=== PATIENT | male | born 1950 | race Caucasian/White ===

== ENCOUNTER 2017-09-21 14:12 | Observation (INO) ==
--- NOTE | 2017-09-21 14:26 | Emergency Department Note ---
Disposition Clinical Impression: Acute electrocardiogram changes, Dizziness, Chest pain of uncertain etiology Disposition: Admitted As Inpatient Condition: Undetermined General Adult HPI - General Chief complaint: ED Dizziness Stated complaint: dizziness, nausea Time Seen by Provider: 09/21/17 14:20 Source: patient Nursing Notes Reviewed: Yes Vital Signs Reviewed: Yes - History of Present Illness HPI Narrative: Mr. Cole, 66-year-old male, presents from home for evaluation of dizziness. Onset approximately 2 months ago and intermittent. Occurs when he stands from a seated position. Described as a flush sensation with tunneling vision. Feels that his head has pressure; denies headache. Resolves once he starts moving. He has not fallen; no head trauma. Habits: Current every day smoker. Started smoking when he was 4yrs of age. Max of 4 packs per day. Currently down to 1 cigarette per day. Unable to calculate pack year history. ROS: Positive: As above Negative: Fever, chills, nausea, vomiting, changes in vision, chest pains, palpitations, unusual back pains, numbness, tingling, weakness Pain Scale: 0 - Related Data Home Medications Medication Instructions Recorded Confirmed Acetaminophen [Tylenol] 1,000 mg PO Q6HR PRN 07/11/16 09/21/17 Aspirin 81 mg PO DAILY 09/21/17 09/21/17 Allergies Allergy/AdvReac Type Severity Reaction Status Date / Time No Known Allergies Allergy Verified 08/21/17 18:35 All systems ED: reviewed and negative except as stated. Review of Systems: As Per HPI Past Medical History - Past Medical History Medical history: Reports: myocardial infarction Surgical history: Reports: other Psychiatric history: Reports: no psych history - Social History Smoking Status: Former smoker Smokeless Tobacco Status: No Alcohol use: Reports: occasionally Drug use: Reports: marijuana Physical Exam Vital Signs Reviewed General: Patient is alert, oriented, and in no acute distress. HEENT: No facial asymmetry. Head is normocephalic and atraumatic. PERRLA, EOMI. oral mucosa moist. Trachea midline. Unable to visualize TMs as are both 100% occluded by black cerumen. Cardiovascular: Heart regular rate and rhythm without clicks, rubs, gallops, or murmurs. No JVD. PMI nondisplaced. Bilateral radial posterior tibial pulses 2 /4. No pedal edema. Substantial clubbing on all digits. Respiratory: Symmetric chest rise with good respiratory effort. Bilateral breath sounds are clear without wheezing, crackles, or rhonchi. Abdomen: Bowel sounds present normoactive x-4 quadrants. Abdomen is soft, nondistended, and nontender. No organomegaly noted. Musculoskeletal: Spontaneously moving all extremities. Neuro: Alert and oriented x4. Sensation light touch intact.. No gait ataxia. No limb drift. Psych: Patient's affect is appropriate for situation. - General General appearance: alert, in no apparent distress Course Course Narrative: There is a presents from home which he complained of dizziness. Appears to be worse when he stands. He has not had a true syncopal event has not fallen because of this. Will perform syncope workup. Patient's EKG shows concerning T-wave inversions in leads V4, V5, V6. On review evaluation and requestioning, patient noted he had chest pain transiently this morning. Described as chest heaviness. Occurred at rest while lying down. Duration was 20-30 seconds. When he sat up, he had nausea and his chest pressure spontaneously resolved. No dyspnea or diaphoresis. Family history is concerning for cardiac history in that multiple siblings have had MO. Chest x-ray and CT had showed no acute processes. Lab work is grossly unremarkable; specifically initial troponin is below upper limit of normal. No renal dysfunction. Spent an extended amount of time attempting to clear the substantial cerumen impaction from the patient's ears. There is impaction bilaterally from the middle of the external auditory canal back to the tympanic membrane. I was able to clear to the tympanic membrane however there was a codeine of cerumen on the TM itself which I was unable to adequately clear despite using repeated flushes of warm water. Patient was able to hear better however there is no change in his subjective dizziness. I discussed the patient my concern of his cardiac symptoms in setting of acute EKG changes. We discussed his cardiac risk factors and he is in agreement to coming into the hospital for continued evaluation and management. I discussed the patient with the admitting hospitalist. She agrees to accept the patient for continued evaluation and management for chest pain rule out ACS. Chest X-Ray 09/21/17 15:04 IMPRESSION: No acute process. D/ / Sav Alejandro MD / Sav Alejandro MD Interpreting Provider: Sav Alejandro MD Head CT 09/21/17 15:06 IMPRESSION: No acute intracranial abnormality. D/ / Sav Alejandro MD / Sav Alejandro MD Interpreting Provider: Sav Alejandro MD Vital Signs Temperature 98.0 F 09/21/17 14:13 Pulse Rate 82 09/21/17 14:13 Respiratory Rate 16 09/21/17 14:13 Blood Pressure 150/90 09/21/17 14:13 O2 Sat by Pulse Oximetry 99 09/21/17 14:13 Temperature 98 F 09/21/17 18:14 Pulse Rate 82 09/21/17 14:13 Respiratory Rate 18 09/21/17 18:14 Blood Pressure 138/84 09/21/17 18:14 O2 Sat by Pulse Oximetry 99 09/21/17 14:13 Oxygen Delivery Oxygen Delivery Room Air Medical Decision Making - Medical Records Medical records reviewed: Yes I reviewed the patient's medical records. - Lab Data Lab results reviewed: Yes I reviewed the patient's lab results. Result diagrams: 09/21/17 17:54 09/21/17 14:41 Lab Results 09/21/17 09/21/17 09/21/17 Range/Units 14:41 14:41 14:41 WBC 6.4 (4.3-11.1) K/mcL RBC 4.53 (4.19-5.50) M/mcL Hgb 13.6 (12.9-16.9) g/dL Hct 41.0 (37.5-50.1) % MCV 90.5 (83.0-100.0) fL MCH 30.0 (28.0-33.3) pg MCHC 33.2 (31.6-35.5) g/dL RDW 12.1 (11.5-14.5) % Plt Count 217 (140-400) K/mcL MPV 9.7 (9.4-12.4) fL Immature Gran % 0.2 (0-4) % Seg Neutrophils % 58.0 % Lymphocytes % 32.7 % Monocytes % 6.3 % Eosinophils % 2.0 % Basophils % 0.8 % Neutrophils # 3.7 (1.6-8.9) K/mcL Lymphocytes # 2.1 (0.6-4.6) K/mcL Monocytes # 0.4 (0.0-1.3) K/mcL Eosinophils # 0.1 (0.0-0.6) K/mcL Basophils # 0.1 (0.0-0.2) K/mcL Sodium 136 (136-145) mEq/L Potassium 3.7 (3.5-5.1) mEq/L Chloride 103 (98-107) mEq/L Carbon Dioxide 25 (23-29) mEq/L BUN 12 (8-23) mg/dL Creatinine 1.20 (0.70-1.30) mg/dL Est GFR ( Amer) > 60 (> 60) Est GFR (Non-Af Amer) > 60 (> 60) BUN/Creatinine Ratio 10 (6-26) Glucose 118 H (70-105) mg/dL Calculated Osmolality 283 (280-300) Calcium 9.6 (8.6-10.3) mg/dL Troponin I < 0.03 (< 0.04) ng/mL Urine Color (Yellow) Urine Clarity (Clear) Urine pH (5.0-8.0) pH Units Ur Specific Boring (1.010-1.025) Urine Protein (Neg-Trace) mg/dL Urine Glucose (UA) (Normal) mg/dL Urine Ketones (Negative) mg/dL Urine Blood (Negative) Urine Nitrite (Negative) Urine Bilirubin (Negative) Urine Urobilinogen (Normal) mg/dL Ur Leukocyte Esterase (Negative) Ur Culture Indicated? (NO) 09/21/17 Range/Units 15:36 WBC (4.3-11.1) K/mcL RBC (4.19-5.50) M/mcL Hgb (12.9-16.9) g/dL Hct (37.5-50.1) % MCV (83.0-100.0) fL MCH (28.0-33.3) pg MCHC (31.6-35.5) g/dL RDW (11.5-14.5) % Plt Count (140-400) K/mcL MPV (9.4-12.4) fL Immature Gran % (0-4) % Seg Neutrophils % % Lymphocytes % % Monocytes % % Eosinophils % % Basophils % % Neutrophils # (1.6-8.9) K/mcL Lymphocytes # (0.6-4.6) K/mcL Monocytes # (0.0-1.3) K/mcL Eosinophils # (0.0-0.6) K/mcL Basophils # (0.0-0.2) K/mcL Sodium (136-145) mEq/L Potassium (3.5-5.1) mEq/L Chloride (98-107) mEq/L Carbon Dioxide (23-29) mEq/L BUN (8-23) mg/dL Creatinine (0.70-1.30) mg/dL Est GFR ( Amer) (> 60) Est GFR (Non-Af Amer) (> 60) BUN/Creatinine Ratio (6-26) Glucose (70-105) mg/dL Calculated Osmolality (280-300) Calcium (8.6-10.3) mg/dL Troponin I (< 0.04) ng/mL Urine Color Yellow (Yellow) Urine Clarity Clear (Clear) Urine pH 7.0 (5.0-8.0) pH Units Ur Specific Boring < 1.005 L (1.010-1.025) Urine Protein Negative (Neg-Trace) mg/dL Urine Glucose (UA) Normal (Normal) mg/dL Urine Ketones Negative (Negative) mg/dL Urine Blood Negative (Negative) Urine Nitrite Negative (Negative) Urine Bilirubin Negative (Negative) Urine Urobilinogen Normal (Normal) mg/dL Ur Leukocyte Esterase Negative (Negative) Ur Culture Indicated? NO (NO) - Radiology Data Radiology results reviewed: Yes I reviewed the patient's radiology results. - EKG Data EKG #1 EKG attestation: Yes I reviewed and interpreted this EKG. EKG results narrative: EKG dated 09/21/17 interpreted as sinus rhythm with a rate of 82. Normal intervals. Normal axis. T-wave inversions in leads V4, V5, V6 that are new from comparison EKG dated 07/09/2016.
[2017-09-21] MEDS ORDERED: Aspirin 81 MG TAB.CHEW PO STA (15:05)
[2017-09-21 15:11] LABS: Basophils # 0.1 K/mcL (0.0-0.2); Basophils % 0.8 %; Eosinophils # 0.1 K/mcL (0.0-0.6); Hemoglobin 13.6 g/dL (12.9-16.9); Immature Granulocytes % 0.2 % (0-4); Lymphocytes # 2.1 K/mcL (0.6-4.6); Lymphocytes % 32.7 %; Mean Corpuscular HGB Conc 33.2 g/dL (31.6-35.5); Mean Corpuscular Volume 90.5 fL (83.0-100.0); Mean Platelet Volume 9.7 fL (9.4-12.4); Monocytes # 0.4 K/mcL (0.0-1.3); Monocytes % 6.3 %; Neutrophils # 3.7 K/mcL (1.6-8.9); Platelet Count 217 K/mcL (140-400); Red Blood Count 4.53 M/mcL (4.19-5.50); Red Cell Distribution Width 12.1 % (11.5-14.5)
[2017-09-21 15:19] LABS: Calcium 9.6 mg/dL (8.6-10.3); Carbon Dioxide 25 mEq/L (23-29); Chloride 103 mEq/L (98-107); Potassium 3.7 mEq/L (3.5-5.1); Sodium 136 mEq/L (136-145)
[2017-09-21 15:24] LABS: BUN/Creatinine Ratio 10 (6-26); Blood Urea Nitrogen 12 mg/dL (8-23); Glucose 118 mg/dL (70-105); Osmolality,Calculated 283 (280-300); eGFR For African Americans > 60 (> 60); eGFR For Non-African Americans > 60 (> 60)
[2017-09-21 15:47] LABS: Bilirubin,Urine Negative (Negative); Blood,Urine Negative (Negative); Clarity,Urine Clear (Clear); Color,Urine Yellow (Yellow); Glucose,Urine (UA) Normal (Normal); Ketones,Urine Negative (Negative); Leukocyte Esterase,Urine Negative (Negative); Nitrite,Urine Negative (Negative); Protein,Urine Negative (Neg-Trace); Specific Gravity,Urine < 1.005 (1.010-1.025); Urobilinogen,Urine Normal (Normal)
[2017-09-21] MEDS ORDERED: *HR* Heparin 5,000 UNIT/ML VIAL IVP ONE (17:07)
[2017-09-21] MEDS ORDERED: *HR* Heparin 5,000 UNIT/ML VIAL IVP PRN ×2 (17:07)
[2017-09-21] MEDS ORDERED: Heparin 25,000 UNIT/500 ML D5W 25,000 UNIT/500 ML BAG IVC SCH (17:15)
--- NOTE | 2017-09-21 17:17 | Emergency Department Note ---
START Narrative - START START: I examined this patient and my medical decision-making was reviewed with the Resident Physician. I agree with the documented findings, disposition and treatment plan as described except to the extent set forth below. 66 yo M here for dizziness worsening x 2 months. chest pressure today with ekg changes. needs eval for ekg changes. risk factors. ct head neg we cleaned out his bilat cerumen impaction so can see if that helps with dizziness. needs acs rule out and possible further imgaging with MRI for dizziness
[2017-09-21] MEDS ORDERED: Naloxone 0.4 MG/ML INJ IVP PRN (17:55)
[2017-09-21 18:05] LABS: Hematocrit 41.1 % (37.5-50.1); Hemoglobin 13.8 g/dL (12.9-16.9); Mean Corpuscular HGB Conc 33.6 g/dL (31.6-35.5); Mean Corpuscular Hemoglobin 30.5 pg (28.0-33.3); Mean Corpuscular Volume 90.7 fL (83.0-100.0); Mean Platelet Volume 9.5 fL (9.4-12.4); Platelet Count 210 K/mcL (140-400); Red Blood Count 4.53 M/mcL (4.19-5.50); Red Cell Distribution Width 12.2 % (11.5-14.5)
--- NOTE | 2017-09-21 18:06 | Event Note ---
Date of Encounter: 09/21/17 Time of Encounter: 18:04 1. Chest pain with EKG showing T-wave inversions in lateral leads V4 through V6 Schedule a stress test for the morning, echocardiogram Telemetry, start aspirin Check lipid panel, statin 2. Dizziness possibly from orthostatic hypotension Check orthostatics, fall precautions, telemetry 3. Accelerated hypertension Start amlodipine and lisinopril, hydralazine IV as needed 4. Tobacco use, smoking cessation counseling, nicotine patch Omeprazole for GI prophylaxis and subcutaneous heparin for DVT prophylaxis. The patient will be admitted for observation. Full code. Time spent on this admission 40 minutes. H&P will be completed by Alessio Stanley NP
[2017-09-21 18:11] LABS: INR 1.1; Prothrombin Time 12.2 Seconds (9.4-12.1)
[2017-09-21 18:13] LABS: Activated Partial Thrombo Time 27.7 Seconds (26.0-36.0)
--- NOTE | 2017-09-21 18:28 | Internal Med History&Physical ---
<Alessio Stanley - Last Filed: 09/21/17 19:35> Date of Encounter: 09/21/17 Time of Encounter: 18:20 Assessment and Plan (1) Unstable angina Current visit: Yes Status: Acute ASSESSMENT: - Chest pain due to unstable angina. He reports chest pain upon awakening this morning described as more of a midsternal chest pressure with radiation. He denies any diaphoresis or shortness of breath but admits to nausea with the chest pressure. Additionally, he is reporting dizziness with position change and is exacerbated with activity. PLAN: - cardiac enzymes x 2 q 6 hr - EKG with T-wave inversion in V4, V5 and V6 which is new from prior EKG - ASA - Start simvastatin now - Start amlodipine and lisinopril for hypertension - O2 by NC to keep SpO2 greater than 92% - CBCD, BMP in AM - Fasting lipids - Heparin 5000 U SQ BID - 2D Echo - Pharmacological stress in the morning (2) Dizziness Current visit: Yes Status: Acute Reporting dizziness with position change. No focal neurologiccal deficits. Possibly from orthostatic hypotension -orthostatic vitals -falls precautions -telemetry (3) HTN (hypertension) Current visit: Yes Status: Acute Accelerated hypertension. He reports no prior history of hypertension and is not taking any antihypertensives this time -Start amlodipine and lisinopril -Hydralazine every 6 hours PRN for SBP greater than 160 -Continue to monitor hemodynamic status Qualifiers: Hypertension type: unspecified Qualified Code(s): I10 - Essential (primary ) hypertension (4) Liver mass Current visit: Yes Status: Acute Liver mass seen on prior CT. Reports Night sweats, weight-loss, nausea and a decrease in appetite over the last few months Ct results are as follows lesion noted within the left hepatic lobe which appears slightly increase in size since the previous exam. Superior aspect is somewhat nodular. At that time a MRI evaluation was recommended -MRI of abdomen with contrast in the morning. (5) DVT prophylaxis Current visit: Yes Status: Acute Heparin 5000 units SC BID Internal Medicine - H&P: HPI Chief complaint: Chest pressure, dizziness Admitted From: Home Plans for Post Hospital Care: Home History of present illness: Mr. Cole is a 66 year old male with a past medical history of a prior OR. He presents today to [facility] with midsternal chest pressure for approximately 10 minutes which began while lying in bed this morning. He reports no exacerbating factors but reports that the pressure subsided when he got up and walked around his house. He denies any radiation of pressure, shortness of breath, or diaphoresis. He endorses dizziness, and nausea during while experiencing the chest pressure. His chart reports a PMH of a prior OR but he denies any knowledge of ever having a heart attack. He denies any fevers , chills, shortness of breath, abdominal pain, or unilateral extremity swelling or pain. The EKG in the ED reveals T-wave inversion in the lateral leads which were not present on prior EKG's. The initial troponin is negative. As of my assessment he is chest pain free and resting comfortably in the bed but he is noted to be hypertensive with a SBP in the 170's. He denies an prior h/o HTN and reports that he is not on any medication. Also of note he is reporting weight-loss, decrease in appetite, and night sweats. He reports that during his last visit a nodular lesion was noted in his liver. Past Med Surg Social Fam HX - Past Medical History Medical history: myocardial infarction Psychiatric history: no psych history - Past Surgical History Surgical History: other - Social History Smoking Status: Former smoker Smokeless Tobacco Status: No Alcohol use: occasionally Drug use: marijuana - Family History Mother Living Status: Hx Family Cardiac Disorders: Yes Hx Family Endocrine Disorder: Yes (DM) Father Living Status: Hx Family Respiratory Disorders: Yes (Emphyzema) Internal Medicine - H&P: Meds Acetaminophen [Tylenol] 1,000 mg PO Q6HR PRN 07/11/16 [History] Aspirin 81 mg PO DAILY 09/21/17 [History] 3 Allergy/AdvReac Type Severity Reaction Status Date / Time No Known Allergies Allergy Verified 08/21/17 18:35 All Systems PM: A 10-system review of systems was performed and is negative for pertinent findings except as documented above in the HPI. - Constitutional Constitutional: as per HPI - EENT Eyes: no change in vision, no discharge, no pain, no photophobia Ears: no ear discharge, no ear pain, no tinnitus Nose, mouth and throat: no dysphagia, no nasal discharge, no neck pain, no sore throat - Cardiovascular Cardiovascular ROS IM: as per HPI, no edema, no palpitations, no syncope - Respiratory Respiratory: no cough, no dyspnea, no wheezing, no excessive phlegm production - Gastrointestinal Gastrointestinal: no abdominal pain, no diarrhea, no hematemesis, no hematochezia, no melena, no nausea, no vomiting - Genitourinary Genitourinary ROS male: no dysuria, no flank pain - Musculoskeletal Musculoskeletal ROS IM: no numbness, no tingling - Integumentary Integumentary IM: no rash, no unusual bruising - Neurological Neurological ROS: no confusion, no convulsions, no focal weakness, no numbness, no tingling, no tremor(s) - Constitutional Vitals: Temp Pulse Resp BP Pulse Ox 98 F 82 18 138/84 99 09/21/17 18:14 09/21/17 14:13 09/21/17 18:14 09/21/17 18:14 09/21/17 14:13 General appearance: Present: cooperative, A&O X 3, no acute distress, answers questions appropriately - Head Head exam: Present: atraumatic, normocephalic - Eye Eye exam: Present: PERRL, conjuntiva pink, sclera anicteric Pupils: Present: PERRL - Neck Neck exam general surgery: Present: supple, trachea midline. Absent: lymphadenopathy - Respiratory Respiratory exam: Present: CTAB. Absent: accessory muscle use, rales, rhonchi, wheezes - Cardiovascular Cardiovascular exam: Present: RRR, +S1, +S2. Absent: diastolic murmur, gallop, rubs, systolic murmur - GI/Abdominal GI/Abdominal exam: Present: normal bowel sounds, soft, no peritoneal signs. Absent: distended, tenderness - Extremities Exam Extremities exam: Present: warm, radial pulses palpable and symmetrical. Absent : calf tenderness, cyanotic, pedal edema - Neurological Exam Neurological exam: Present: CN II-XII intact, oriented X3, no focal deficits. Absent: pronater drift, facial droop, speech deficit - Skin Skin exam: Present: dry, intact Internal Med - H&P Results - Labs CBC & Chem 7: 09/21/17 17:54 09/21/17 14:41 Labs: Short CBC 09/21/17 Range/Units 17:54 WBC 7.6 (4.3-11.1) K/mcL Hgb 13.8 (12.9-16.9) g/dL Hct 41.1 (37.5-50.1) % Plt Count 210 (140-400) K/mcL - EKG Data -: EKG Interpreted by Myself EKG shows normal: sinus rhythm - EKG Data EKG comments: Sinus rhythm with T-wave inversions noted in the lateral leads, V4, V5, V6. These inversions were not present upon review of prior EKG's 09/21/17 18:31 - Impressions Impressions Chest X-Ray 09/21/17 15:04 IMPRESSION: No acute process. D/ / Sav Alejandro MD / Sav Alejandro MD Interpreting Provider: Sav Alejandro MD Head CT 09/21/17 15:06 IMPRESSION: No acute intracranial abnormality. D/ / Sav Alejandro MD / Sav Alejandro MD Interpreting Provider: Sav Alejandro MD <Samuel Ivan H - Last Filed: 09/21/17 19:56> Date of Encounter: 09/21/17 Internal Medicine - H&P: HPI History of present illness: Mr. Cole is a 66 year old male All Systems PM: A 10-system review of systems was performed and is negative for pertinent findings except as documented above in the HPI. - Constitutional Vitals: Temp Pulse Resp BP Pulse Ox 98.2 F 72 14 154/79 97 09/21/17 18:55 09/21/17 18:55 09/21/17 18:55 09/21/17 18:55 09/21/17 18:55 Internal Med - H&P Results - Labs CBC & Chem 7: 09/21/17 17:54 09/21/17 14:41 Labs: Short CBC 09/21/17 Range/Units 17:54 WBC 7.6 (4.3-11.1) K/mcL Hgb 13.8 (12.9-16.9) g/dL Hct 41.1 (37.5-50.1) % Plt Count 210 (140-400) K/mcL Cardiac Enzymes 09/21/17 Range/Units 17:54 Troponin I < 0.03 (< 0.04) ng/mL - Attending Attestation 1. Chest pain with EKG showing T-wave inversions in lateral leads V4 through V6 (CORRECTION: NO EVIDENCE OF UNSTABLE ANGINA) Schedule a stress test for the morning, echocardiogram Telemetry, start aspirin Check lipid panel, statin 2. Dizziness possibly from orthostatic hypotension Check orthostatics, fall precautions, telemetry 3. Accelerated hypertension Start amlodipine and lisinopril, hydralazine IV as needed 4. Tobacco use, smoking cessation counseling, nicotine patch Omeprazole for GI prophylaxis and subcutaneous heparin for DVT prophylaxis. The patient will be admitted for observation. Full code. Time spent on this admission 40 minutes. I have personally performed a face to face evaluation on this patient. I have reviewed and agree with the care plan. History and Exam by me shows:
[2017-09-21] MEDS: *HR* Heparin 5,000 UNIT/ML VIAL SQ SCH (20:12)
[2017-09-21] MEDS: amLODIPine 5 MG TABLET PO SCH (20:12)
[2017-09-22 00:56] LABS: Hematocrit 39.7 % (37.5-50.1); Hemoglobin 13.2 g/dL (12.9-16.9); Mean Corpuscular HGB Conc 33.2 g/dL (31.6-35.5); Mean Corpuscular Hemoglobin 30.3 pg (28.0-33.3); Mean Corpuscular Volume 91.1 fL (83.0-100.0); Mean Platelet Volume 9.4 fL (9.4-12.4); Platelet Count 195 K/mcL (140-400); Red Blood Count 4.36 M/mcL (4.19-5.50); Red Cell Distribution Width 12.1 % (11.5-14.5)
[2017-09-22 01:20] LABS: BUN/Creatinine Ratio 10 (6-26); Blood Urea Nitrogen 12 mg/dL (8-23); Calcium 9.3 mg/dL (8.6-10.3); Carbon Dioxide 29 mEq/L (23-29); Chloride 102 mEq/L (98-107); Chol/HDL Ratio 5.9 (0-4.9); Cholesterol 201 mg/dL (< 200); Glucose 92 mg/dL (70-105); HDL Cholesterol 34 mg/dL (40-59); LDL Cholesterol,Calculated 137 mg/dL (0-99); Osmolality,Calculated 285 (280-300); Potassium 3.6 mEq/L (3.5-5.1); Sodium 138 mEq/L (136-145); Triglycerides 150 mg/dL (< 150); eGFR For African Americans > 60 (> 60); eGFR For Non-African Americans > 60 (> 60)
[2017-09-22] MEDS ORDERED: Ondansetron 4 MG/2 ML VIAL IVP PRN (03:45)
[2017-09-22] MEDS ORDERED: Ondansetron 4 MG/2 ML VIAL ONE (03:48)
[2017-09-22] MEDS: *HR* Heparin 5,000 UNIT/ML VIAL SQ SCH (05:28)
[2017-09-22] MEDS ORDERED: Regadenoson 0.4 MG/5 ML SYRINGE IVP ONE (06:48)
[2017-09-22] MEDS ORDERED: Aspirin 81 MG TAB.CHEW PO SCH (09:00)
[2017-09-22] MEDS: amLODIPine 5 MG TABLET PO SCH (12:29)
[2017-09-22 13:08] VITALS: BP 124/69
--- NOTE | 2017-09-22 16:12 | Discharge Summary ---
Date of Encounter: 09/22/17 Time of Encounter: 16:10 - Discharge Diagnosis (1) Unstable angina Priority: Primary Status: Acute Comments: Chest pain due to unstable angina. He reporeds chest pain upon awakening which he described as more of a midsternal chest pressure with radiation. He denied any diaphoresis or shortness of breath but admited to nausea with the chest pressure. Additionally, he was reporting dizziness with position change and stated was exacerbated with activity. He has been chest pain-free with no dizziness, no nausea, no shortness of breath. Echocardiogram reviewed with EF of 60%, mild left ventricular diastolic dysfunction, normal right ventricular structure and function no significant valvular dysfunction and no pulmonary hypertension Nuclear stress test negative for ischemia Orthostatic blood pressures with slight drop with sit to stand Instructed to continue his baby aspirin and to follow-up with her PCP. He was given a 800 pound number to call to choose a PCP to be calm established. (2) Liver mass Priority: Secondary Status: Chronic Comments: Abdominal MRI report stated liver lesion identified on CT in segment 2 is compatible with a benign cyst and moderate hiatal hernia (3) HTN (hypertension) Priority: Primary Status: Chronic Comments: Patient's blood pressure was 120 over 70s, orthostatic from 126/83-109/69 when standing Patient states he uses salt on everything very heavily and drinks very little water Advised low sodium intake Also instructed to get up slowly especially from sitting to standing Advised to keep a blood pressure log and explained how to do that Take the blood pressure log to his new PCP. He and his verbalized understanding Qualifiers: Hypertension type: unspecified Qualified Code(s): I10 - Essential (primary ) hypertension (4) Dizziness Priority: Primary Status: Acute Comments: Reporting dizziness with position change. No focal neurologiccal deficits. Possibly from orthostatic hypotension -orthostatic vitals slightly positive from sit to stand, instructed patient to rise and change position slowly To follow up with the primary care physician for further management - Discharge Medications Home Medications: Acetaminophen [Tylenol] 1,000 mg PO Q6HR PRN 07/11/16 [History] Aspirin 81 mg PO DAILY 09/21/17 [History] Allergies/Adverse Reactions: 3 Allergy/AdvReac Type Severity Reaction Status Date / Time No Known Allergies Allergy Verified 08/21/17 18:35 Procedures/tests Complete & Pending: Procedures Performed prior 72 hours Category Date Time Status NM donya perf SPECT multi [NM] Routine Exams 09/21/17 17:57 Taken MR abdomen wo/w con [MR] Routine MRI 09/22/17 09:00 Draft EV echocardiogram Routine Y 09/22/17 17:57 Completed SP pharm nuclear stress Routine Y 09/22/17 09:00 Completed Date of admission: 09/21/17 17:43 Primary care physician: PCP NONE Discharging clinician: Sydnee Coello Anticipated date of discharge: 09/22/17 - Patient Status Disposition: Home, Self-Care Condition: Undetermined Functional capacity at discharge: independent ambulation Overall status at discharge: patient is back to baseline - Discharge Instructions Instructions: Angina (DC), Chest Pain (DC) Follow Up With: NONE,PCP [Primary Care Provider] - Additional Instructions: Please call [phone] to find a new family physician. - Diet and Activity Activity: resume usual activities as tolerated Diet: advance to your usual diet Interval History: Patient pain free and no further dizziness at this time no shortness of breath. Anxious for discharge to home. Provided information on available PCPs. Explained the findings on his testing results and he verbalized understanding his is in the room and she also verbalized understanding and had no questions. Hospital course: Please see assessment and plan regarding details - Time Spent with Patient Total time spent providing and/or coordinating discharge services: Less than 30 minutes - Constitutional Vitals: Temp Pulse Resp BP Pulse Ox 98.1 F 66 16 124/69 98 09/22/17 11:29 09/22/17 13:07 09/22/17 11:29 09/22/17 13:07 09/22/17 11:29 General appearance: Present: cooperative, A&O X 3, no acute distress, answers questions appropriately - Head Head exam: Present: atraumatic, normocephalic - Eye Eye exam: Present: PERRL, conjuntiva pink, sclera anicteric Pupils: Present: PERRL - Neck Neck exam general surgery: Present: supple, trachea midline. Absent: lymphadenopathy - Respiratory Respiratory exam: Present: CTAB. Absent: accessory muscle use, rales, rhonchi, wheezes - Cardiovascular Cardiovascular exam: Present: RRR, +S1, +S2. Absent: diastolic murmur, gallop, rubs, systolic murmur - GI/Abdominal GI/Abdominal exam: Present: normal bowel sounds, soft, no peritoneal signs. Absent: distended, tenderness - Extremities Exam Extremities exam: Present: warm, radial pulses palpable and symmetrical. Absent : calf tenderness, cyanotic, pedal edema - Neurological Exam Neurological exam: Present: oriented X3, no focal deficits. Absent: pronater drift, facial droop, speech deficit - Skin Skin exam: Present: dry, intact, warm
--- NOTE | 2017-09-23 17:28 | Electrocardiograph Report ---
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
== END 2017-09-22 16:10 | disposition home or self-care (01) ==
LOC: EMEROO 14:12 → 3BNU 14:12
PROVIDERS: ADMIT Nurse Practitioner; ATTEND Registered Nurse